=== PATIENT | male | born 1960 | race Caucasian/White ===

== ENCOUNTER 2017-11-14 19:00 | Emergency (ER) | payer SELFPAY ==
[2017-11-14 19:58] VITALS: BP 160/76
--- NOTE | 2017-11-14 21:39 | UC ---
Shoulder Pain HPI - HPI Summary HPI Summary: Patient is a 57-year-old male presenting to the after falling in a drain at work 3 days ago. He endorses right shoulder pain left wrist pain and left ankle pain. The ankle is with some ecchymosis to the medial side. He has full range of motion in the ankle and the wrist as well as the shoulder. He endorses more pain to the clavicle than the shoulder. Denies any color or temperature changes otherwise. He states he is feeling otherwise well. Has been taking Tylenol with minimal relief. - History of Current Complaint Chief Complaint: UCUpperExtremity Stated Complaint: WRIST,SHOULDER,LEG INJURY Time Seen by Provider: 11/14/17 19:52 Hx Obtained From: Patient Onset/Duration: Sudden Onset Timing: Constant Severity Initially: Moderate Severity Currently: Moderate Pain Intensity: 8 Pain Scale Used: 0-10 Numeric Character: Aching Aggravating Factor(s): Movement, Lifting, Flexion Alleviating Factor(s): Rest Related History: Dominant Hand Right - Risk Factors Non-Orthopedic Risk Factor: Negative DVT Risk Factors: Negative Septic Arthritis Risk Factor: Negative - Allergies/Home Medications Allergies/Adverse Reactions: Allergies Allergy/AdvReac Type Severity Reaction Status Date / Time No Known Allergies Allergy Verified 11/14/17 19:58 PMH/Surg Hx/FS Hx/Imm Hx Previously Healthy: Yes - Surgical History Surgical History: Yes Surgery Procedure, Year, and Place: CABG X2. Neck surgery-steel plate - Family History Known Family History: Positive: Hypertension - Social History Occupation: Employed Full-time Lives: With Family Alcohol Use: Rare Substance Use Type: None Smoking Status (MU): Current Every Day Smoker Type: Cigarettes Amount Used/How Often: 1/2 ppd Length of Time of Smoking/Using Tobacco: 30 years Review of Systems Constitutional: Negative Skin: Negative Respiratory: Negative Cardiovascular: Negative Motor: Negative Neurovascular: Negative Musculoskeletal: Arthralgia - right shoulder, left ankle and left wrist pain Neurological: Negative Is Patient Immunocompromised?: No All Other Systems Reviewed And Are Negative: Yes Physical Exam Triage Information Reviewed: Yes Appearance: Well-Appearing, Well-Nourished Vital Signs: Initial Vital Signs Temp 98.3 F 11/14/17 19:52 Pulse 89 11/14/17 19:52 Resp 22 11/14/17 19:52 BP 160/76 11/14/17 19:52 Pulse Ox 97 07/19/18 19:52 Vital Signs Reviewed: Yes Eye Exam: Normal Respiratory Exam: Normal Respiratory: Positive: Chest non-tender Cardiovascular Exam: Normal Musculoskeletal Exam: Other - right shoulder, left ankle and left wrist pain Psychological: Positive: Normal Response To Family Skin Exam: Normal Shoulder Course/Dx - Course Course Of Treatment: During the course treatment, the patient is evaluated for right shoulder pain left ankle pain and left wrist pain. X-rays obtained. Read by myself as all negative. Will await final results of the radiology read. I've given him instructions to continue to take Tylenol, rest the area and elevate the ankle. - Differential Dx/Diagnosis Provider Diagnoses: Shoulder pain - Right, left wrist pain, left ankle pain Discharge - Sign-Out/Discharge Documenting (check all that apply): Patient Departure - Discharge Plan Condition: Stable Disposition: HOME Referrals: Hang Ramirez MD [Primary Care Provider] - Additional Instructions: tylenol 650mg three times daily hot baths/showers for discomfort gentle stretches will call with any differing results tomorrow - Billing Disposition and Condition Condition: STABLE Disposition: Home Attestation Statement User Type: Provider - I was available for consult. This patient was seen by the [facility]. The patient was not presented to, seen by, or examined by me. -Errol
--- NOTE | 2017-11-15 07:36 | RAD ---
Indication: Medial LEFT ankle pain post fall. Comparison: No relevant prior exams available on the [facility] PACS for comparison. Technique: AP, mortise, and lateral views LEFT ankle. Report: Soft tissue swelling without significant focality. No suggestion of talocrural joint effusion. Normal articular alignment. No cortical disruption or suspicious trabecular irregularity to suggest fracture. Peripheral vascular calcifications. IMPRESSION: #. Soft tissue swelling. #. Negative for fracture.
--- NOTE | 2017-11-15 07:38 | RAD ---
Indication: RIGHT shoulder pain post fall. Comparison: March 30, 2011 Technique: Internal rotation AP, external rotation Grashey, scapular Y, axillary views RIGHT shoulder Report: Negative for fracture. Normal acromioclavicular and glenohumeral joint alignment. Minimal calcific tendinopathy at the level of the infraspinatus tendon significantly decreased in magnitude compared with the 2011 exam. Mild osteophytosis at the proximal clavicular and glenohumeral joints. Unremarkable soft tissue contours. IMPRESSION: #. No radiographic evidence for traumatic injury of the RIGHT shoulder.
--- NOTE | 2017-11-15 07:39 | RAD ---
INDICATION: LEFT wrist pain post fall. COMPARISON: No relevant prior exams available on the [facility] PACS for comparison. TECHNIQUE: AP, lateral, and oblique views LEFT wrist. REPORT AND IMPRESSION: #. Normal articular alignment. No cortical disruption or suspicious trabecular irregularity to suggest fracture. Nonfocal soft tissue swelling.
== END 2017-11-14 20:36 | disposition home or self-care (01) ==
LOC: UCEAST 19:00
DX: M25.511 Pain in right shoulder (principal); M25.532 Pain in left wrist; M25.572 Pain in left ankle and joints of left foot; F17.210 Nicotine dependence, cigarettes, uncomplicated; Z95.1 Presence of aortocoronary bypass graft
CPT/HCPCS: 99212; G0463

== ENCOUNTER 2018-01-13 19:31 | Observation (INO) | payer BC ==
[2018-01-13] MEDS ORDERED: Aspirin 81 mg CHEW TAB* 81 MG TAB.CHEW PO ONE (19:40)
[2018-01-13] MEDS ORDERED: Nitroglycerin 2% OINT* 1 GM PAK TOPICAL ONE (20:20)
[2018-01-13] MEDS ORDERED: Labetalol IV* 5 MG/ML 20 ML VIAL IV PUSH ONE (20:20)
[2018-01-13 20:40] LABS: ABS Basophils 0.2 10^3/ul (0-0.2); ABS Eosinophils 0.4 10^3/ul (0-0.6); ABS Lymphocytes 4.4 10^3/ul (1.0-4.8); ABS Monocytes 0.8 10^3/ul (0-0.8); ABS Neutrophils 5.6 10^3/ul (1.5-7.7); ABS Nucleated RBC 0.1 10^3/ul; Eosinophil % 3.6 % (0-6); Hematocrit 47 % (42-52); Hemoglobin 16.4 g/dl (14.0-18.0); Lymphocyte % 39.1 % (25-47); Mean Corpuscular HGB Conc 35 g/dl (31-36); Mean Corpuscular Hemoglobin 29 pg (27-31); Mean Corpuscular Volume 84 fL (80-94); Mean Platelet Volume 7.6 um3 (7.4-10.4); Nucleated Red Blood Cells % 0.5; Platelet Count 202 10^3/ul (150-450); Red Blood Count 5.64 10^6/ul (4.00-5.40); Red Cell Distribution Width 15 % (10.5-15); White Blood Count 11.3 10^3/ul (3.5-10.8)
[2018-01-13 20:45] LABS: INR 0.91 (0.77-1.02)
[2018-01-13 20:57] LABS: EGFR Non-African American 83.2 (>60)
--- NOTE | 2018-01-13 21:13 | ED ---
HPI Chest Pain - HPI Summary HPI Summary: Pt is a 57 y/o male who presents to the ED c/o chest pressure. The CP began today and is intermittent, 2/10 in severity, and centered in his left pectoral area. He also was nauseated, SOB, and had left arm pain, which now resolved. He c/o fatigue, and has been sleeping all day. Pt denies any abdominal pain, neck pain, or LE edema. Pt states hes had this chest pressure before over the past few months, but it usually resolves on its own. He took baby ASA this morning. PMHx CT, cardiac stent, HLD, and HTN. His last stress test was a few years ago. BP while in room: 154/96. Pt is a smoker. - History of Current Complaint Chief Complaint: EDChestPainROMI Time Seen by Provider: 01/13/18 20:01 Hx Obtained From: Patient Onset/Duration: Started Weeks Ago - A few months, Still Present Timing: Intermittent Current Severity: Mild Pain Intensity: 0 - 2 Pain Scale Used: 0-10 Numeric Chest Pain Location: Left Anterior Chest Pain Radiates: Yes Chest Pain Radiates To:: Arm - Left Character: Pressure/Squeezing Aggravating Factor(s): Nothing Alleviating Factor(s): Nothing Associated Signs and Symptoms: Positive: Shortness of Breath, Nausea, Other: - Fatigue Related History: Similar Episode/Dx as: - CT - Allergy/Home Medications Allergies/Adverse Reactions: Allergies Allergy/AdvReac Type Severity Reaction Status Date / Time No Known Allergies Allergy Verified 11/14/17 19:58 PMH/Surg Hx/FS Hx/Imm Hx Endocrine/Hematology History: Denies: Hx Diabetes, Hx Thyroid Disease Cardiovascular History: Reports: Hx Hypercholesterolemia, Hx Hypertension, Hx Myocardial Infarction, Other Cardiovascular Problems/Disorders - Cardiac stents Respiratory History: Denies: Hx Asthma, Hx Chronic Obstructive Pulmonary Disease (COPD) GI History: Denies: Hx Ulcer - Surgical History Surgery Procedure, Year, and Place: CABG X2. Neck surgery-steel plate Infectious Disease History: No Infectious Disease History: Denies: Hx Hepatitis, Hx Human Immunodeficiency Virus (HIV), Traveled Outside the [place] in Last 30 Days - Family History Known Family History: Positive: Cardiac Disease, Hypertension - Social History Alcohol Use: Rare Hx Substance Use: No Substance Use Type: Reports: None Hx Tobacco Use: Yes Smoking Status (MU): Heavy Every Day Tobacco Smoker Type: Cigarettes Amount Used/How Often: 1/2 ppd Length of Time of Smoking/Using Tobacco: 30 years Review of Systems Positive: Chest Pain Positive: Shortness Of Breath Positive: Nausea. Negative: Abdominal Pain Positive: Myalgia - Left arm pain, Other - NEGATIVE: neck pain. Negative: Edema All Other Systems Reviewed And Are Negative: Yes Physical Exam - Summary Physical Exam Summary: Appearance: Well appearing, no pain distress Skin: warm, dry, reflects adequate perfusion Head/face: normal Eyes: EOMI, NALLELY ENT: normal Neck: supple, non-tender Respiratory: CTA, breath sounds present Cardiovascular: RRR, pulses symmetrical Abdomen: non-tender, soft Bowel Sounds: present Musculoskeletal: normal, strength/ROM intact Neuro: normal, sensory motor intact, A&Ox3 Triage Information Reviewed: Yes Vital Signs On Initial Exam: Initial Vitals Temp Pulse Resp BP Pulse Ox 98.0 F 64 18 187/91 97 01/13/18 19:36 01/13/18 19:36 01/13/18 19:36 01/13/18 19:36 01/13/18 19:36 Vital Signs Reviewed: Yes Diagnostics - Vital Signs Vital Signs Temp Pulse Resp BP Pulse Ox 01/13/18 21:00 55 13 94 01/13/18 20:41 53 14 134/60 94 01/13/18 20:10 56 154/96 95 01/13/18 19:36 98.0 F 64 18 187/91 97 - Laboratory Lab Results: Lab Results 01/13/18 01/13/18 01/13/18 Range/Units 20:30 20:30 20:30 WBC 11.3 H (3.5-10.8) 10^3/ul RBC 5.64 H (4.00-5.40) 10^6/ul Hgb 16.4 (14.0-18.0) g/dl Hct 47 (42-52) % MCV 84 (80-94) fL MCH 29 (27-31) pg MCHC 35 (31-36) g/dl RDW 15 (10.5-15) % Plt Count 202 (150-450) 10^3/ul MPV 7.6 (7.4-10.4) um3 Neut % (Auto) 49.1 (38-83) % Lymph % (Auto) 39.1 (25-47) % Bracken % (Auto) 6.8 (0-7) % Eos % (Auto) 3.6 (0-6) % Baso % (Auto) 1.4 (0-2) % Absolute Neuts (auto) 5.6 (1.5-7.7) 10^3/ul Absolute Lymphs (auto) 4.4 (1.0-4.8) 10^3/ul Absolute Monos (auto) 0.8 (0-0.8) 10^3/ul Absolute Eos (auto) 0.4 (0-0.6) 10^3/ul Absolute Basos (auto) 0.2 (0-0.2) 10^3/ul Absolute Nucleated RBC 0.1 10^3/ul Nucleated RBC % 0.5 INR (Anticoag Therapy) 0.91 (0.77-1.02) Sodium 138 (135-145) mmol/L Potassium 3.6 (3.5-5.0) mmol/L Chloride 104 (101-111) mmol/L Carbon Dioxide 26 (22-32) mmol/L Anion Gap 8 (2-11) mmol/L BUN 11 (6-24) mg/dL Creatinine 0.93 (0.67-1.17) mg/dL Est GFR ( Amer) 100.6 (>60) Est GFR (Non-Af Amer) 83.2 (>60) BUN/Creatinine Ratio 11.8 (8-20) Glucose 110 H (70-100) mg/dL Lactic Acid (0.5-2.0) mmol/L Calcium 9.5 (8.6-10.3) mg/dL Total Bilirubin 0.70 (0.2-1.0) mg/dL AST 24 (13-39) U/L ALT 29 (7-52) U/L Alkaline Phosphatase 57 (34-104) U/L Troponin I 0.01 (<0.04) ng/mL B-Natriuretic Peptide ( - 100) pg/mL Total Protein 7.2 (6.4-8.9) g/dL Albumin 4.2 (3.2-5.2) g/dL Globulin 3.0 (2-4) g/dL Albumin/Globulin Ratio 1.4 (1-3) TSH Pending 01/13/18 01/13/18 Range/Units 20:30 20:30 WBC (3.5-10.8) 10^3/ul RBC (4.00-5.40) 10^6/ul Hgb (14.0-18.0) g/dl Hct (42-52) % MCV (80-94) fL MCH (27-31) pg MCHC (31-36) g/dl RDW (10.5-15) % Plt Count (150-450) 10^3/ul MPV (7.4-10.4) um3 Neut % (Auto) (38-83) % Lymph % (Auto) (25-47) % Bracken % (Auto) (0-7) % Eos % (Auto) (0-6) % Baso % (Auto) (0-2) % Absolute Neuts (auto) (1.5-7.7) 10^3/ul Absolute Lymphs (auto) (1.0-4.8) 10^3/ul Absolute Monos (auto) (0-0.8) 10^3/ul Absolute Eos (auto) (0-0.6) 10^3/ul Absolute Basos (auto) (0-0.2) 10^3/ul Absolute Nucleated RBC 10^3/ul Nucleated RBC % INR (Anticoag Therapy) (0.77-1.02) Sodium (135-145) mmol/L Potassium (3.5-5.0) mmol/L Chloride (101-111) mmol/L Carbon Dioxide (22-32) mmol/L Anion Gap (2-11) mmol/L BUN (6-24) mg/dL Creatinine (0.67-1.17) mg/dL Est GFR ( Amer) (>60) Est GFR (Non-Af Amer) (>60) BUN/Creatinine Ratio (8-20) Glucose (70-100) mg/dL Lactic Acid 1.2 (0.5-2.0) mmol/L Calcium (8.6-10.3) mg/dL Total Bilirubin (0.2-1.0) mg/dL AST (13-39) U/L ALT (7-52) U/L Alkaline Phosphatase (34-104) U/L Troponin I (<0.04) ng/mL B-Natriuretic Peptide 63 ( - 100) pg/mL Total Protein (6.4-8.9) g/dL Albumin (3.2-5.2) g/dL Globulin (2-4) g/dL Albumin/Globulin Ratio (1-3) TSH Result Diagrams: 01/14/18 03:16 01/14/18 03:16 Lab Statement: Any lab studies that have been ordered have been reviewed, and results considered in the medical decision making process. - Radiology CXR Xray Interpretation: Positive (See Comments) - Left lower lobe infiltrate. Pending official radiology report. Radiology Interpretation Completed By: ED Physician - EKG 19:34 Cardiac Rate: Bradycardia - 58 bpm EKG Rhythm: Sinus Rhythm ST Segment: Non-Specific EKG Interpretation: Nl axis, poor R-wave progression EKG Comparison: No Significant Change Chest Pain Course/Dx - Course Course Of Treatment: Patient with elevated heart score at 45 but also found to have left basilar infiltrate. His pain has been mostly on the left side. He is not hypoxic. He is a smoker. IV antibiotic given. Given his cardiac risk factors hospitalist was contacted and will admit. Initial EKG, troponin nondiagnostic. - Chest Pain Differential Diagnosis/HQI/PQRI: Acute CT, ACS, Angina, Aortic Aneurysm, CHF, Chest Wall, GI Disease, Lower Respiratory Infection - Diagnoses Provider Diagnoses: Left lower lobe pneumonia, Chest pain Discharge - Sign-Out/Discharge Documenting (check all that apply): Patient Departure - Admit - Discharge Plan Condition: Stable Disposition: ADMITTED TO [facility] - Billing Disposition and Condition Condition: STABLE Disposition: Admitted to [facility] - Attestation Statements Document Initiated by Scribe: Yes Documenting Scribe: Mayela Aguilar Provider For Whom Scribe is Documenting (Include Credential): Mark Pham MD Scribe Attestation: Mayela Hood, scribed for Mark Pham MD on 01/14/18 at 0632. Scribe Documentation Reviewed: Yes Provider Attestation: The documentation as recorded by the scribMayela donnelly accurately reflects the service I personally performed and the decisions made by me, Mark Pham MD
[2018-01-13] MEDS ORDERED: Levofloxacin 750 MG IVPREMIX(* 750 MG/150 ML BAG IVPB ONE (21:19)
[2018-01-13] MEDS ORDERED: Acetaminophen TAB* 325 MG PO PRN (21:39)
[2018-01-13] MEDS ORDERED: Senna TAB PO PRN (21:39)
[2018-01-13] MEDS ORDERED: Docusate CAP* 100 MG PO PRN (21:39)
[2018-01-13] MEDS ORDERED: Al Hydrox/Mg Hydrox/Simet LIQ* 30 ML UDC PO PRN (21:39)
[2018-01-13] MEDS ORDERED: Ondansetron INJ* 2 MG/ML VIAL IV PRN (21:39)
[2018-01-13] MEDS ORDERED: Albuterol 2.5 MG/3 ML NEB.SOL* (0.083%) INH PRN (21:39)
[2018-01-13] MEDS ORDERED: traMADol TAB* 50 MG PO PRN (21:47)
--- NOTE | 2018-01-13 23:30 | HP ---
CC: Dr. Hang Ramirez * HISTORY AND PHYSICAL: DATE OF ADMISSION: 01/13/18 TIME OF EVALUATION: 2099 PRIMARY CARE PHYSICIAN: Hang Ramirez MD CHIEF COMPLAINT: Chest pain. HISTORY OF PRESENT ILLNESS: This is a 57-year-old male with past medical history of CAD, hypertension, hyperlipidemia who presents to the emergency room with chest pain. The patient is here with his and son. He states for the past few weeks he has had left sided chest pain and significant fatigue. His chest pain is off- and-on all day. It occurs with movement and at rest, eventually it does resolve. Today, he slept most for the day. He was not feeling right and he promised his children that if he ever had any chest pain that he would go get evaluated. He has been short of breath as well dyspnea on exertion. No cough. No respiratory symptoms. He has had chills at home, no diaphoresis. He was nauseated today. No vomiting. He did have chest pain, traveling down his left arm and jaw earlier today. He has had a 10 pound weight loss over the past month, but it has been intentional with dietary changes using the treadmill, which he has also gotten chest pain on. He has chronic lower extremity swelling. No fevers. No sick contacts. No urinary symptoms or abdominal pain. No rash. Otherwise, review of systems is negative. In the emergency room, the patient had labs and imaging. He was given an inch of nitro paste, a full dose of aspirin, Levaquin and referred to the hospitalist service for further evaluation. PAST MEDICAL HISTORY: 1. Coronary artery disease, status post PCI and coronary artery bypass graft, followed by Dr. Galdamez. 2. Hyperlipidemia. 3. Hypertension. 4. History of neck surgery in the past. MEDICATIONS: 1. Atorvastatin 40 mg p.o. daily. 2. Metoprolol tartrate 12.5 mg p.o. b.i.d. 3. Amlodipine 5 mg daily. 4. Plavix 75 mg daily. 5. Tramadol 50 mg 1 to 2 tablets every 6 hours as needed for pain. 6. Trazodone 100 mg at bedtime as needed for sleep. 7. Lisinopril 40 mg daily. 8. Hydrochlorothiazide 25 mg daily. 9. Aspirin 81 mg daily. ALLERGIES: No known drug allergies. FAMILY HISTORY: Mother from ovarian cancer. Father from an [place] in his 40s. SOCIAL HISTORY: The patient smokes a pack over 2 days with past 35 plus years. No alcohol use or illicit drug use. He works at [employer]. His healthcare proxy is his son, Farhat. CODE STATUS: Full code. REVIEW OF SYSTEMS: A 14-point review of systems are reviewed and as mentioned in the HPI, otherwise negative. PHYSICAL EXAMINATION GENERAL: In no acute distress, resting comfortably with his and son at the bedside. VITAL SIGNS: T. max 98, pulse rate 52, respiratory rate 14, oxygen saturation 94% on room air, blood pressure 131/64. HEENT: Head: Normocephalic. Pupils are equal and reactive. Oropharynx: Mucous membranes moist. NECK: Supple. No lymphadenopathy. RESPIRATORY: Diminished breath sounds. Poor aeration. Prolonged expiratory phase rhonchi in the left lower lobe. CARDIAC: Bradycardia. Soft systolic murmur heard throughout. Regular rate. Regular rhythm ABDOMEN: Soft, nontender, nondistended. EXTREMITIES: +1 pretibial edema. NEUROLOGIC: Alert and oriented x3. No gross focal neurologic deficits. LABORATORY DATA: White count 11.3, hemoglobin 16.4, hematocrit 47, platelets 202. INR is 0.91. Sodium 138, potassium 3.6, chloride 104, bicarb 26, BUN 11, creatinine 0.93, glucose 110, troponin 0.01, BNP is 63, TSH is 2.18. RADIOGRAPHIC DATA: Shows normal sinus bradycardia with rate 58. No significant ST changes. Chest x-ray findings consistent with the left middle lobe infiltrate. ASSESSMENT: This is a 57-year-old male with past medical history of coronary artery disease, hypertension, hyperlipidemia who presents to the emergency room with several weeks of left-sided chest pain. 1. Chest pain. Assessment: The patient's history and physical are most consistent with community acquired pneumonia with an elevated white count and chest x-ray findings. His initial troponin is negative. He does have a significant cardiac history but EKG and initial trop are negative. It is possible that he does have pulmonary embolism. Plan: The patient was given Levaquin in the emergency room. We will continue this. We will check a D-dimer, if it is elevated we will check a CTA, INR, the CRP. He is in no respiratory distress at this time, does not meet sepsis criteria. We will continue to rule him out with troponins, followup on the CTA if he does have an elevated D-dimer. 2. Chronic medical problems coronary artery disease, hypertension and hyperlipidemia. We will resume his home medications as prescribed. We will hold his hydrochlorothiazide in the setting of acute infectious illness. 3. Chronic pain. We will continue with tramadol and family continue his trazodone. 4. FEN: We placed the patient on heart healthy diet. 5. DVT prophylaxis: The patient scores high risk. We will place him on heparin subcu t.i.d. 6. Code status: Full code. TIME SPENT: Greater than 45 minutes was spent doing the history and physical, more than half the time spent in direct patient contact. [id number]/CPS #: [id number] [place]
[2018-01-13] MEDS: Heparin VIAL(*) 5000 UNITS/ML VIAL (FIVE THOUSAND) SUBCUT SCH (23:42)
[2018-01-13] MEDS: traZODone TAB* 100 MG PO PRN (23:54)
[2018-01-14 03:23] LABS: ABS Basophils 0.1 10^3/ul (0-0.2); ABS Eosinophils 0.3 10^3/ul (0-0.6); ABS Lymphocytes 3.4 10^3/ul (1.0-4.8); ABS Monocytes 0.7 10^3/ul (0-0.8); ABS Neutrophils 4.7 10^3/ul (1.5-7.7); ABS Nucleated RBC 0 10^3/ul; Eosinophil % 3.3 % (0-6); Hematocrit 43 % (42-52); Hemoglobin 14.4 g/dl (14.0-18.0); Lymphocyte % 37.2 % (25-47); Mean Corpuscular HGB Conc 34 g/dl (31-36); Mean Corpuscular Hemoglobin 28 pg (27-31); Mean Corpuscular Volume 83 fL (80-94); Mean Platelet Volume 7.5 um3 (7.4-10.4); Nucleated Red Blood Cells % 0.1; Platelet Count 170 10^3/ul (150-450); Red Blood Count 5.14 10^6/ul (4.00-5.40); Red Cell Distribution Width 15 % (10.5-15); White Blood Count 9.1 10^3/ul (3.5-10.8)
[2018-01-14 04:58] LABS: EGFR Non-African American 81.1 (>60)
[2018-01-14] MEDS: Heparin VIAL(*) 5000 UNITS/ML VIAL (FIVE THOUSAND) SUBCUT SCH ×3 (06:15→21:50)
--- NOTE | 2018-01-14 08:06 | RAD ---
Indication: Chest pain. Single frontal view of the chest performed at 2007 hours was reviewed. Comparison is made with previous exam dated May 24, 2011. No mediastinal shift is noted. Heart is of normal size and configuration. Lung whitfield appear clear. Minimal discoid atelectasis in left lung base is incidentally noted. IMPRESSION: NO ACTIVE CARDIOPULMONARY DISEASE IS NOTED. R1
[2018-01-14] MEDS: Aspirin 81 mg CHEW TAB* 81 MG TAB.CHEW PO SCH (08:40)
[2018-01-14] MEDS: amLODIPine TAB* 5 MG PO SCH (08:40)
[2018-01-14] MEDS: Clopidogrel TAB* 75 MG PO SCH (08:40)
[2018-01-14] MEDS: Metoprolol Tartrate TAB* 25 MG PO SCH ×2 (08:40→21:55)
[2018-01-14] MEDS: Lisinopril TAB* 10 MG PO SCH (08:41)
--- NOTE | 2018-01-14 11:37 | PN ---
Subjective Date of Service: 01/14/18 Interval History: Patient seen and examined at bedside. Denies fever, chills, shortness of breath , chest discomfort, N/V/D. Pt states that he has had an occasional non- productive cough this AM. Pt states that he often has shortness of breath with exertion and chest discomfort if her "pushes him self to much". He states that he is able to ambulate without shortness of breath or chest discomfort, but if he has to go up an incline then he often has chest discomfort. He has recently started using the treadmill and reports that he is able to ambulate flat without difficulty, but if he adds incline then he develops shortness of breath and chest discomfort. He states that he often notices diaphoresis and occasional nausea with the chest discomfort. he has not followed up with cardiology in 3 years. He states that he stayed home from work yesterday due to nausea and feels like he has been working to hard. He also reports feeling fatigued yesterday. Pt was able to briskly walk around the unit x2 without chest discomfort. Tele: Sinus rhythm to sinus lorenza, rate 50-100's. Family History: Unchanged from Admission Social History: Unchanged from Admission Past Medical History: Unchanged from Admission Objective Active Medications: Acetaminophen (Tylenol Tab*) 650 mg PO Q4H PRN Reason: FEVER/PAIN Al Hydrox/Mg Hydrox/Simethicone (Maalox Plus*) 30 ml PO Q6H PRN Reason: INDIGESTION Albuterol (Ventolin 2.5 Mg/3 Ml Neb.Brielle*) 2.5 mg INH [id number] AWAKE PRN Reason: sob/wheezing Amlodipine Besylate (Norvasc Tab*) 5 mg PO DAILY [facility] Aspirin (Aspirin 81 Mg Chew Tab*) 81 mg PO DAILY [facility] Atorvastatin Calcium (Lipitor*) 40 mg PO 1700 [facility] Clopidogrel Bisulfate (Plavix Tab*) 75 mg PO DAILY [facility] Docusate Sodium (Colace Cap*) 100 mg PO BID PRN Reason: CONSTIPATION Heparin Sodium (Porcine) (Heparin Vial(*)) 5,000 units SUBCUT Q8HR [facility] Levofloxacin/Dextrose (Levaquin 750 Mg Ivpremix(*)) 750 mg in 150 mls @ 100 mls /hr IVPB Q24H [facility] Lisinopril (Prinivil Tab*) 40 mg PO DAILY [facility] Metoprolol Tartrate (Lopressor Tab*) 12.5 mg PO Q12HR [facility] Ondansetron HCl (Zofran Inj*) 4 mg IV Q4H PRN Reason: NAUSEA/VOMITING Senna (Senokot Tab*) 1 tab PO BID PRN Reason: CONSTIPATION Tramadol HCl (Ultram*) 50 mg PO Q6H PRN Reason: PAIN Trazodone HCl (Desyrel Tab*) 100 mg PO BEDTIME PRN Reason: SLEEP Vital Signs - 8 hr 01/14/18 01/14/18 03:49 08:34 Temperature 98.2 F 98.0 F Pulse Rate 61 62 Respiratory 16 16 Rate Blood Pressure 107/55 141/69 (mmHg) O2 Sat by Pulse 93 97 Oximetry Oxygen Devices in Use Now: None Appearance: NAD, sitting up on the side of the bed Ears/Nose/Mouth/Throat: Mucous Membranes Moist Respiratory: Symmetrical Chest Expansion and Respiratory Effort, Clear to Auscultation - , diminished in bases Cardiovascular: RRR, - - Grade 1-2/6 systolic murmur heard throughout Abdominal: NL Sounds; No Tenderness; No Distention Extremities: No Edema Skin: No Rash or Ulcers Neurological: Alert and Oriented x 3, NL Muscle Strength and Tone Lines/Tubes/Other Access: Clean, Dry and Intact Peripheral IV - site benign Nutrition: Taking PO's Result Diagrams: 01/14/18 03:16 01/14/18 03:16 Assess/Plan/Problems-Billing Assessment: Mr. Torres is a 57 yo male with PMH significant for CAD, HLD, and HTN who presented to the emergency room with complaints of chest pain. - Patient Problems (1) Pneumonia Code(s): J18.9 - PNEUMONIA, UNSPECIFIED ORGANISM SNOMED Code(s): 861549648 Comment: - Afebrile and leukocytosis resolved - No respiratory symptoms - Chest xray without findings of PNA - Discontinue levaquin (2) Chest pain Code(s): R07.9 - CHEST PAIN, UNSPECIFIED SNOMED Code(s): 46030908 Comment: - Suspect this could represent ACS - RAFAL score 1 - Troponin 0.01 x3 - No acute EKG changes - Will plan for stress testing in the AM (3) CAD (coronary artery disease) Code(s): I25.10 - ATHSCL HEART DISEASE OF [place] CORONARY ARTERY W/O ANG PCTRS SNOMED Code(s): 38894140 Comment: - Continue metoprolol, statin, and plavix (4) HTN (hypertension) Current Visit: Yes Status: Chronic Code(s): I10 - ESSENTIAL (PRIMARY) HYPERTENSION SNOMED Code(s): 89913751 Comment: - SBP 100-140's - Continue metoprolol, lisinopril, and amlodipine - Continue to hold HCTZ in the setting of possible acute illness (5) HLD (hyperlipidemia) Code(s): E78.5 - HYPERLIPIDEMIA, UNSPECIFIED SNOMED Code(s): 59812269 Comment: - Continue statin (6) Chronic pain Code(s): G89.29 - OTHER CHRONIC PAIN SNOMED Code(s): 95021070 Comment: - Continue tramadol PRN and trazodone PRN (7) DVT prophylaxis Code(s): KMB7636 - SNOMED Code(s): 378914681 Comment: - SQ heparin (8) Full code status Code(s): Z78.9 - OTHER SPECIFIED HEALTH STATUS SNOMED Code(s): 112339409 Status and Disposition: OBV. Discharge to home when medically stable, possibly in the AM after stress testing. Attending: Nancy Culp
[2018-01-14] MEDS ORDERED: Atorvastatin* 40 MG TAB PO SCH (17:00)
[2018-01-14] MEDS: traZODone TAB* 100 MG PO PRN (21:55)
[2018-01-14] MEDS ORDERED: Levofloxacin 750 MG IVPREMIX(* 750 MG/150 ML BAG IVPB SCH (22:00)
[2018-01-15] MEDS: Heparin VIAL(*) 5000 UNITS/ML VIAL (FIVE THOUSAND) SUBCUT SCH ×2 (05:24→13:57)
[2018-01-15] MEDS: Clopidogrel TAB* 75 MG PO SCH (08:32)
[2018-01-15] MEDS: Aspirin 81 mg CHEW TAB* 81 MG TAB.CHEW PO SCH (08:32)
--- NOTE | 2018-01-15 12:56 | RAD ---
Edited for charges. INDICATION: Chest pain. Previous myocardial infarction and revascularization. Multiple risk factors for coronary artery disease. COMPARISON: No relevant prior exams available on the [facility] PACS for comparison. TECHNIQUE: 10.600 mCi of Tc-99m Myoview were administered IV. SPECT images of the heart were obtained. Later on the same day. Under the direction of Dr. Galdamez, an exercise stress test was performed. The patient achieved a peak heart rate of 143 bpm, 89 % of the age- predicted maximum. Subsequently, the patient was given an IV injection of 25.200 mCi Tc- 99m Myoview. SPECT images of the heart were obtained and a gated wall motion study was performed. FINDINGS: Gated wall motion images were obtained at stress and demonstrate hypokinesia at the apex and septum. The calculated left ventricular ejection fraction is 58 % at stress. Estimated LEFT ventricular end diastolic volume is 110 mL. TID 0.93. Moderate grossly fixed apical and apical anteroseptal perfusion defect. No compelling stress-induced reversible ischemia evident. IMPRESSION: #. Moderate apical and apical anteroseptal infarct. Associated hypokinesia. No compelling stress-induced ischemia evident. #. Normal range estimated LEFT ventricular ejection fraction. ASSESSMENT: Low risk based on nuclear portion. Based on imaging criteria from ACC/AHA 2002 Guideline Update for the Management of Patients With Chronic Stable Angina Table 23. Noninvasive Risk Stratification. MTDD
[2018-01-15 13:18] VITALS: BP 125/75
[2018-01-15] MEDS: Metoprolol Tartrate TAB* 25 MG PO SCH (13:55)
[2018-01-15] MEDS: amLODIPine TAB* 5 MG PO SCH (13:57)
[2018-01-15] MEDS: Lisinopril TAB* 10 MG PO SCH (13:57)
--- NOTE | 2018-01-16 14:58 | DS ---
CC: Dr. Peraza; Dr. Pham; Dr. Hang Ramirez; Dr. Galdamez * DISCHARGE SUMMARY: DATE OF ADMISSION: DATE OF DISCHARGE: 01/15/18 DISCHARGE DIAGNOSES: As follows: 1. Chest pain, possibly secondary to angina. 2. Mild leukocytosis, resolved, likely secondary to reactive leukocytosis. DISCHARGE MEDICATIONS: As follows: 1. Amlodipine 5 mg p.o. daily. 2. Atorvastatin 40 mg p.o. daily. 3. Plavix 75 mg p.o. daily. 4. Colace 200 mg p.o. daily. 5. HCTZ 25 mg p.o. daily. 6. Hydrocodone/acetaminophen 5/325 mg 1 tab p.o. q.6 p.r.n. 7. Lisinopril 40 mg p.o. daily. 8. Metoprolol tartrate 12.5 mg p.o. b.i.d. 9. Nitroglycerin 0.4 mg sublingual q.5 minutes p.r.n. 10. Trazodone 100 mg p.o. q.h.s. HISTORY OF PRESENT ILLNESS/HOSPITAL COURSE: The patient is a 57-year-old gentleman with history of CAD, hypertension, and hyperlipidemia, he is status post PCI and coronary artery bypass graft, who was being followed by Dr. Galdamez as an outpatient, but is not very compliant with his followups, who presented with an intermittent chest pain that has been occurring all day prior to admission. He mentioned that his chest pain occurs with movement or sometimes at rest, which sometimes is accompanied by radiation to the jaw, sometimes with radiation towards the left arm or sometimes both. He has been ruled out for acute coronary syndrome with troponins being negative for x3 and ruled out for PE with a D-dimer of less than 200 and a stress test was done, which also shows low probability actionable coronary artery disease at this time , although it did show moderate apical and apical anterior septal infarct, associated hypokinesia with no compelling stress- induced ischemia that was evident. The above history and physical examination was discussed with Dr. Galdamez prior to patient's discharge, who agreed that the patient can be placed on p.r.n. nitroglycerin until fully evaluated by Dr. Galdamez in person in a few weeks and hence will defer. The patient had been advised to follow up and/or call his PCP within 3 days post discharge. He had been informed that Dr. Galdamez was informed of his case prior to his discharge and for him to follow up in her office in 3 weeks and to call her office number to make an appointment. He was advised to take sublingual nitroglycerin when he has chest pain and he was advised that if he has taken 3 within 1 day without his chest pain resolving, to go the nearest ER or call his PCP to be reevaluated. He was advised if his symptoms resume or develop new ones or feel unwell for any reason, to call his PCP first and if his PCP cannot entertain him due to scheduling issues alone, to call [facility] if his issue is not emergent. He was advised to call my office regarding any questions, concerns, or further clarifications regarding his discharge plans and/or prescriptions and to take his medications as prescribed. PHYSICAL EXAMINATION: Reveals the most recent vital signs of record with blood pressure of 125/75, 97.9 degrees Fahrenheit, 59 beats per minute heart rate, respiratory rate of 16. General Appearance: The patient is awake, alert, and oriented x3, not in acute distress. HEENT: Normocephalic, atraumatic. PERRLA. Extraocular muscles intact. Negative for icterus. Moist oral mucosa. Negative throat erythema. Neck is soft, supple with no cervical lymphadenopathy. No JVD. Heart: S1, S2 within normal limits. Regular rate and rhythm. No murmurs, rubs, or gallops. Chest: Clear to auscultation bilaterally. Good air entry. No wheezes, rales, or rhonchi. Abdomen is soft, nondistended, nontender. Normoactive bowel sounds x4 quadrants. Extremities: No cyanosis, clubbing, or edema. Psychiatric: No active psychosis, depression, suicidal or homicidal ideations. Skin is warm to touch. TIME SPENT: The total time spent evaluating the patient, reviewing pertinent data and appropriate documentation is 40 minutes. [id number]/[facility] #: [id number] MTDD
== END 2018-01-15 15:30 | disposition home or self-care (01) ==
LOC: ED 19:31 → MEDTELE 21:39
PROVIDERS: ADMIT Pediatrics; ATTEND Student in an Organized Health Care Education/Training Program
DX: J18.9 Pneumonia, unspecified organism (principal); R07.9 Chest pain, unspecified; D72.829 Elevated white blood cell count, unspecified; I10 Essential (primary) hypertension; E78.5 Hyperlipidemia, unspecified; I25.10 Atherosclerotic heart disease of native coronary artery without angina pectoris; Z95.1 Presence of aortocoronary bypass graft; Z79.899 Other long term (current) drug therapy; Z79.01 Long term (current) use of anticoagulants; F17.210 Nicotine dependence, cigarettes, uncomplicated; R00.1 Bradycardia, unspecified; R06.02 Shortness of breath
CPT/HCPCS: 36415; 71045; 78452; 80048; 80053; 80061; 83605; 83880; 84145; 84443; 84484; 85025; 85379; 85610; 86140; 93005; 93017; 96365; 96372; 99283; A9270-GY; A9502; G0378; J1644

== ENCOUNTER 2021-08-22 18:22 | Observation (INO) ==
[2021-08-22 18:58] LABS: ABS Basophils 0.1 10^3/ul (0-0.2); ABS Eosinophils 0.2 10^3/ul (0-0.6); ABS Monocytes 1.2 10^3/ul (0-0.8); ABS Neutrophils 8.9 10^3/ul (1.5-7.7); Eosinophil % 1.7 %; Hematocrit 43 % (42-52); Hemoglobin 15.1 g/dL (14.0-18.0); Mean Corpuscular HGB Conc 35 g/dL (31-36); Mean Corpuscular Hemoglobin 29 pg (27-31); Mean Corpuscular Volume 83 fL (80-94); Mean Platelet Volume 7.3 fL (7.4-10.4); Platelet Count 344 10^3/uL (150-450); Red Blood Count 5.19 10^6 /uL (4.18-5.48); Red Cell Distribution Width 14 % (10-15); White Blood Count 13.5 10^3/uL (3.5-10.8)
[2021-08-22 19:03] LABS: INR 1.18 (0.86-1.15)
[2021-08-22 19:25] LABS: Albumin 3.8 g/dL (3.2-5.2); Calcium 9.3 mg/dL (8.6-10.3); Potassium 3.1 mmol/L (3.5-5.0); Total Bilirubin 0.8 mg/dL (0.2-1.0)
[2021-08-22 19:30] LABS: Albumin/Globulin Ratio 1.3 (1-3); Total Protein 6.8 g/dL (6.4-8.9)
[2021-08-22 20:37] LABS: High Sensitivity Troponin 1 Hr 26 pg/mL (<20)
[2021-08-23] MEDS ORDERED: Ondansetron 4 mg VIAL 2 MG/ML 2 ml VIAL IV ONE (00:22)
[2021-08-23] MEDS ORDERED: NS 0.9% 1000 ml BAG 1,000 ML IV ONE ×2 (00:22→01:19)
[2021-08-23] MEDS ORDERED: Potassium Chlor 20 meq TAB.ER PO ONE (01:44)
[2021-08-23 01:47] LABS: Urine Appearance Turbid; Urine Bilirubin Negative (Negative); Urine Blood 1+ (Negative); Urine Color Amber; Urine Glucose Negative (Negative); Urine Ketones Trace (Negative); Urine Nitrite Negative (Negative); Urine Protein 2+(100 mg/dL) (Negative); Urine Specific Gravity 1.023 (1.002-1.030); Urine Urobilinogen Negative (Negative)
[2021-08-23 01:54] LABS: Urine Bacteria Absent (Absent); Urine Red Blood Cell 2+(6-10/hpf) (Absent); Urine Squamous Epithelial Cell Present (Absent); Urine White Blood Cell 2+(11-20/hpf) (Absent)
[2021-08-23] MEDS ORDERED: Dextrose 50% Syringe 50 ml 25 GM/50 ML SYRINGE IV PUSH PRN ×2 (05:55→07:48)
[2021-08-23 06:15] LABS: Urine Creatinine Concentration 116.51 mg/dL
[2021-08-23] MEDS: Heparin 5000 UNITS/ML 1 mL VIAL SUBCUT SCH ×3 (06:28→20:30)
[2021-08-23 06:42] LABS: ABS Basophils 0.1 10^3/ul (0-0.2); ABS Eosinophils 0.1 10^3/ul (0-0.6); ABS Monocytes 1.1 10^3/ul (0-0.8); ABS Neutrophils 8.1 10^3/ul (1.5-7.7); Eosinophil % 1.1 %; Hematocrit 36 % (42-52); Hemoglobin 12.7 g/dL (14.0-18.0); Lymphocyte % 17.3 %; Mean Corpuscular HGB Conc 35 g/dL (31-36); Mean Corpuscular Hemoglobin 29 pg (27-31); Mean Corpuscular Volume 83 fL (80-94); Mean Platelet Volume 7.3 fL (7.4-10.4); Platelet Count 252 10^3/uL (150-450); Red Blood Count 4.39 10^6 /uL (4.18-5.48); Red Cell Distribution Width 14 % (10-15); White Blood Count 11.3 10^3/uL (3.5-10.8)
[2021-08-23 07:26] LABS: Calcium 8.1 mg/dL (8.6-10.3); Potassium 2.9 mmol/L (3.5-5.0); eGFR CKD-EPI 32.1 (>60)
[2021-08-23 07:27] LABS: Magnesium 2.1 mg/dL (1.9-2.7)
[2021-08-23] MEDS: KCL 20 MEQ/100 ML IVPREMIX 20 MEQ/100 ML BAG IV SCH ×2 (08:46→11:40)
[2021-08-23] MEDS: Isosorbide Mononit ER 30mg TAB PO SCH (08:48)
[2021-08-23] MEDS: Aspirin EC 81 mg TAB.EC (enteric coated) PO SCH (08:49)
[2021-08-23] MEDS ORDERED: TRAMADOL 100 MG PO SCH (09:00)
[2021-08-23] MEDS ORDERED: Dexamethasone IV 4 MG/ML VIAL 1 ml VIAL IV SLOW PU ONE (10:47)
[2021-08-23] MEDS ORDERED: Remdesivir 100 mg Vial 200 MG in NS 0.9% 250 ml 210 ML IV ONE (11:30)
[2021-08-23] MEDS: Lactated Ringers 1000 ml BAG 1,000 ML IV SCH ×2 (11:40→19:56)
[2021-08-23] MEDS: guaiFENesin DM SUGAR FREE 100 MG/10 MG 5 ML UDC PO PRN (23:22)
[2021-08-24] MEDS: guaiFENesin DM SUGAR FREE 100 MG/10 MG 5 ML UDC PO PRN (04:32)
[2021-08-24] MEDS: Lactated Ringers 1000 ml BAG 1,000 ML IV SCH (04:32)
[2021-08-24] MEDS: Heparin 5000 UNITS/ML 1 mL VIAL SUBCUT SCH ×2 (05:03→13:59)
[2021-08-24] MEDS ORDERED: Remdesivir 100 mg Vial 100 MG in NS 0.9% 250 ml 230 ML IV SCH (09:00)
[2021-08-24] MEDS: Aspirin EC 81 mg TAB.EC (enteric coated) PO SCH (10:31)
[2021-08-24] MEDS: Isosorbide Mononit ER 30mg TAB PO SCH (10:32)
[2021-08-24 12:45] LABS: Calcium 8.6 mg/dL (8.6-10.3); Potassium 2.9 mmol/L (3.5-5.0); eGFR CKD-EPI 39.9 (>60)
[2021-08-24 12:52] LABS: INR 1.17 (0.86-1.15)
[2021-08-24] MEDS ORDERED: Potassium Chlor 20 meq TAB.ER PO SCH (14:00)
[2021-08-24 14:39] VITALS: BP 133/50
== END 2021-08-24 15:23 | disposition home or self-care (01) ==
LOC: EDHOLD 18:22 → ED 18:22 → SUATTDRO 08-23 05:47 → MEDTELE 08-23 09:41
PROVIDERS: ADMIT Internal Medicine; ATTEND Hospitalist

== ENCOUNTER 2024-04-27 20:59 | Inpatient (IN) ==
[2024-04-27 21:48] LABS: ABS Basophils 0.2 10^3/uL (0.0-0.1); ABS Lymphocytes 1.7 10^3/uL (1.0-4.8); ABS Monocytes 1.2 10^3/uL (0.0-1.1); ABS Neutrophils 17.6 10^3/uL (1.5-7.6); ABS Nucleated RBC 0.01 10^3/ul; Eosinophil % 0.1 %; Hematocrit 46.3 % (38-53); Hemoglobin 15.8 g/dL (13.2-16.3); Lymphocyte % 8.3 %; Mean Corpuscular Hemoglobin 28.5 pg (27-33); Mean Corpuscular Hgb Conc 34.2 g/dL (31-36); Mean Corpuscular Volume 83.4 fL (80-97); Mean Platelet Volume 7.1 fL (7.5-11.2); Platelet Count 332 10^3/uL (150-450); Red Blood Count 5.55 10^6/uL (4.06-5.63); Red Cell Distribution Width 14.1 % (12-17); White Blood Count 20.7 10^3/uL (3.6-10.2)
[2024-04-27] MEDS: Albuterol 2.5mg/3 ml (0.083%) NEB.SOLN INH ONE (21:49)
[2024-04-27] MEDS: methylPREDNISolone SOD SUCC 125 mg 2 ML VIAL IV ONE (21:49)
[2024-04-27] MEDS: Furosemide 40 mg/4 ml IV VIAL IV ONE (22:32)
[2024-04-27 22:34] LABS: Albumin 3.4 g/dL (3.5-5.7); C Reactive Protein 94.62 mg/L (<8.01); Calcium 8.7 mg/dL (8.6-10.3); Creatinine, Serum 1.16 mg/dL (0.67-1.17); Globulin 3.5 g/dL (2-4); Total Bilirubin 0.9 mg/dL (0.2-1.0); Total Protein 6.9 g/dL (6.4-8.9); eGFR CKD-EPI 69.9 (>60)
[2024-04-27] MEDS: cefTRIAXone 1 gm/50 mL D5W 1 GM/50 ML BAG IV ONE (22:35)
[2024-04-27] MEDS: Azithromycin 500 mg/250 ml NS 500 MG/250 ML BAG IVPB ONE (23:00)
[2024-04-27 23:32] LABS: High Sensitivity Troponin 1 Hr 87 pg/mL (<20)
[2024-04-28] MEDS: Iodixanol 320 (CONTRAST) 100 ML SDV IV ONE (02:08)
[2024-04-28] MEDS: Enoxaparin 100 MG/ML SYR SUBCUT ONE (02:19)
[2024-04-28] MEDS: Enoxaparin 100 MG/ML SYR ONE (02:59)
[2024-04-28 05:47] LABS: Hemoglobin 14.6 g/dL (13.2-16.3); Mean Corpuscular Hemoglobin 28.3 pg (27-33); Mean Corpuscular Volume 83.1 fL (80-97); Mean Platelet Volume 7.3 fL (7.5-11.2); Platelet Count 341 10^3/uL (150-450); Red Blood Count 5.17 10^6/uL (4.06-5.63); Red Cell Distribution Width 14.3 % (12-17); White Blood Count 21.8 10^3/uL (3.6-10.2)
[2024-04-28] MEDS ORDERED: Albuterol 2.5mg/3 ml (0.083%) NEB.SOLN INH PRN (06:11)
[2024-04-28] MEDS ORDERED: Albuterol/Ipratropium NEB.SOL (2.5/0.5 MG) 3 ML NEB.SOLN INH PRN (06:11)
[2024-04-28] MEDS ORDERED: Dextrose 50% Syringe 50 ml 25 GM/50 ML SYRINGE IV PUSH PRN (06:13)
[2024-04-28] MEDS: Ondansetron 4 mg VIAL 2 MG/ML 2 ml VIAL IV ONE ×2 (06:19→11:31)
[2024-04-28] MEDS: Ondansetron 4 mg VIAL 2 MG/ML 2 ml VIAL ONE (06:19)
[2024-04-28 06:22] LABS: Albumin 3.2 g/dL (3.5-5.7); Calcium 8.7 mg/dL (8.6-10.3); Creatinine, Serum 1.25 mg/dL (0.67-1.17); Globulin 3.3 g/dL (2-4); Magnesium 1.9 mg/dL (1.9-2.7); Total Bilirubin 0.9 mg/dL (0.2-1.0); Total Protein 6.5 g/dL (6.4-8.9); eGFR CKD-EPI 63.9 (>60)
[2024-04-28 06:31] LABS: ABS Basophils 0.1 10^3/uL (0.0-0.1); ABS Lymphocytes 0.8 10^3/uL (1.0-4.8); ABS Monocytes 0.2 10^3/uL (0.0-1.1); ABS Neutrophils 20.7 10^3/uL (1.5-7.6); Lymphocyte % 3.7 %
[2024-04-28] MEDS: methylPREDNISolone SOD SUCC 40 mg/ml 1 ml VIAL IV SCH (06:51)
[2024-04-28] MEDS: Potassium Chlor 20 meq TAB.ER PO ONE (06:52)
[2024-04-28] MEDS: KCL 20 MEQ/100 ML IVPREMIX 20 MEQ/100 ML BAG IV SCH (06:52)
[2024-04-28] MEDS: Isosorbide Mononit ER 30mg TAB PO SCH (07:57)
[2024-04-28] MEDS: Aspirin EC 81 mg TAB.EC (enteric coated) PO SCH (07:57)
[2024-04-28 08:10] LABS: HDL Cholesterol 28.3 mg/dL
[2024-04-28] MEDS: Sulfur Hexaflouride MICROSPHR 25 MG VIAL IV PRN (08:45)
[2024-04-28] MEDS: Magnesium Sulfate 2 gm BAG 2 GM/50 ML BAG IVPB ONE (17:05)
[2024-04-28] MEDS: Potassium Chloride LIQUID 20 MEQ/15 ML LIQUID PO ONE (17:09)
[2024-04-28 19:51] LABS: Calcium 8.4 mg/dL (8.6-10.3); Creatinine, Serum 1.36 mg/dL (0.67-1.17); Potassium 3.4 mmol/L (3.5-5.0); eGFR CKD-EPI 57.8 (>60)
[2024-04-28] MEDS: Azithromycin 500 mg/250 ml NS 500 MG/250 ML BAG IVPB SCH (21:25)
[2024-04-28] MEDS: Benzocaine/Menthol LOZ PO PRN (21:25)
[2024-04-28] MEDS: cefTRIAXone 1 gm/50 mL D5W 1 GM/50 ML BAG IV SCH (22:56)
[2024-04-29 05:18] LABS: Hematocrit 39.8 % (38-53); Hemoglobin 13.3 g/dL (13.2-16.3); Mean Corpuscular Hemoglobin 28.4 pg (27-33); Mean Corpuscular Hgb Conc 33.5 g/dL (31-36); Mean Corpuscular Volume 84.8 fL (80-97); Mean Platelet Volume 7.4 fL (7.5-11.2); Platelet Count 335 10^3/uL (150-450); Red Cell Distribution Width 14.3 % (12-17); White Blood Count 26.1 10^3/uL (3.6-10.2)
[2024-04-29 05:20] LABS: ABS Lymphocytes 0.9 10^3/uL (1.0-4.8); ABS Monocytes 0.5 10^3/uL (0.0-1.1); ABS Neutrophils 24.6 10^3/uL (1.5-7.6); ABS Nucleated RBC 0.03 10^3/ul; Eosinophil % 0.1 %; Lymphocyte % 3.5 %; Nucleated Red Blood Cells % 0.1 %/100WBC (0.0-0.8)
[2024-04-29 05:45] LABS: Calcium 8.1 mg/dL (8.6-10.3); Creatinine, Serum 1.07 mg/dL (0.67-1.17); Magnesium 2.2 mg/dL (1.9-2.7); Potassium 3.9 mmol/L (3.5-5.0)
[2024-04-29] MEDS: Enoxaparin 40 MG/0.4 ML SYR SUBCUT SCH (08:47)
[2024-04-29] MEDS: Cefepime 2 GM in Dextrose 2 GM/50 ML BAG IV SCH (11:48)
[2024-04-29] MEDS: Furosemide 40 mg/4 ml IV VIAL IV SLOW PU ONE (16:15)
[2024-04-29 18:14] LABS: Glucose Confirmatory 444 mg/dL (70-100)
[2024-04-29] MEDS: Insulin GLARGINE 100 un/ml 10 ml VIAL SUBCUT SCH (18:27)
[2024-04-29] MEDS: Insulin GLARGINE 100 un/ml 10 ml VIAL ONE (18:29)
[2024-04-29 19:01] LABS: Anion Gap 7 mmol/L (2-16); Blood Urea Nitrogen 32 mg/dL (6-24); CO2 Carbon Dioxide 31 mmol/L (22-32); Chloride 95 mmol/L (101-111); Creatinine, Serum 1.17 mg/dL (0.67-1.17); Glucose 435 mg/dL (70-100); Sodium 133 mmol/L (135-145); eGFR CKD-EPI 69.2 (>60)
[2024-04-29 20:48] LABS: Glucose Confirmatory 429 mg/dL (70-100)
[2024-04-29] MEDS ORDERED: Insulin GLARGINE 100 un/ml 10 ml VIAL SUBCUT SCH ×2 (21:00)
[2024-04-30 05:56] LABS: ABS Basophils 0.1 10^3/uL (0.0-0.1); ABS Lymphocytes 2.1 10^3/uL (1.0-4.8); ABS Monocytes 1.1 10^3/uL (0.0-1.1); ABS Neutrophils 14.8 10^3/uL (1.5-7.6); ABS Nucleated RBC 0.01 10^3/ul; Eosinophil % 0.1 %; Hemoglobin 12.9 g/dL (13.2-16.3); Lymphocyte % 11.7 %; Mean Corpuscular Hemoglobin 28.6 pg (27-33); Mean Corpuscular Hgb Conc 34.1 g/dL (31-36); Mean Corpuscular Volume 83.9 fL (80-97); Mean Platelet Volume 7.2 fL (7.5-11.2); Platelet Count 303 10^3/uL (150-450); Red Blood Count 4.52 10^6/uL (4.06-5.63); Red Cell Distribution Width 14.3 % (12-17); White Blood Count 18.1 10^3/uL (3.6-10.2)
[2024-04-30 06:23] LABS: Calcium 8.1 mg/dL (8.6-10.3); Creatinine, Serum 0.87 mg/dL (0.67-1.17); Potassium 3.5 mmol/L (3.5-5.0); eGFR CKD-EPI 95.8 (>60)
[2024-04-30] MEDS ORDERED: Dextrose 50% Syringe 50 ml 25 GM/50 ML SYRINGE IV PUSH PRN (07:27)
[2024-04-30 07:49] LABS: Magnesium 1.8 mg/dL (1.9-2.7)
[2024-04-30] MEDS: Potassium Chloride LIQUID 20 MEQ/15 ML LIQUID PO ONE (08:11)
[2024-04-30] MEDS: methylPREDNISolone SOD SUCC 40 mg/ml 1 ml VIAL IV SCH (08:12)
[2024-04-30] MEDS: Magnesium Sulfate 2 gm BAG 2 GM/50 ML BAG IVPB ONE (10:26)
[2024-04-30 12:15] VITALS: BP 143/72
[2024-04-30] MEDS: Azithromycin 500 mg/250 ml NS 500 MG/250 ML BAG IVPB SCH (12:16)
== END 2024-04-30 14:15 | disposition home or self-care (01) | DRG 193 ==
LOC: ED 20:59 → EDHOLD 23:45 → ICU 04-28 01:37
PROVIDERS: ADMIT Internal Medicine Pulmonary Disease; ATTEND Internal Medicine Pulmonary Disease